=== PATIENT | female | born 1960 | race Caucasian/White ===

== ENCOUNTER 2019-06-04 19:27 | Inpatient (IN) ==
[2019-06-04] MEDS ORDERED: ASPIRIN PO ONE (19:45)
[2019-06-04] MEDS ORDERED: NITROGLYCERIN TOP ONE (19:46)
[2019-06-04] MEDS ORDERED: MORPHINE IV ONE (19:46)
[2019-06-04] MEDS ORDERED: ZOFRAN IV ONE (19:46)
--- NOTE | 2019-06-04 20:17 | Diag Imaging Result Doc PS360 ---
EXAM: CHEST-2 VIEWS 06/04/2019 HISTORY: CP TECHNIQUE: AP and lateral chest COMMENT: The inspiration is less optimal than on 06/12/2018. Considering this there has been no significant change. IMPRESSION: No acute disease. Electronically signed by Adithya Burdick 06/04/2019 8:15 PM
[2019-06-04 20:23] LABS: BASO# 0.04 X1000 (0.0-0.2); BASO% 0.7 % (0.0-0.8); EOS# 0.09 X1000 (0.0-0.7); EOS% 1.6 % (0.0-10.0); HEMATOCRIT 35.9 % (37.0-47.0); HEMOGLOBIN 11.3 g/dL (12.0-16.0); INR 1.01; LYMPH# 1.58 X1000 (1.2-3.4); LYMPH% 27.3 % (20.5-51.1); MCHC 31.5 g/dL (33-37); MCV 92.3 FL (81-99); MONO# 0.28 X1000 (0.11-0.59); MONO% 4.8 % (1.7-9.3); MPV 11.3 FL (7.4-10.4); NEUT# 3.79 X1000 (1.4-6.5); NEUT% 65.6 % (42.2-75.2); PLT 210 X1000 (130-400); PROTIME 13.4 Seconds (11.0-16.0); RBC 3.89 XMIL (4.2-5.4); RDW 13.3 % (11.5-14.5); WBC 5.78 X1000 (4.8-10.8)
[2019-06-04 20:24] LABS: PTT 28.7 Seconds (22.3-41.8)
--- NOTE | 2019-06-04 20:25 | EKG Report ---
Test Performed on : 06/04/2019 7:45:19 PM Test Reason : cp Blood Pressure : / mmHG Vent. Rate : 066 BPM Atrial Rate : 066 BPM P-R Int : 154 ms QRS Dur : 092 ms QT Int : 458 ms P-R-T Axes : 016 -23 -15 degrees QTc Int : 480 ms Normal sinus rhythm. Voltage criteria for left ventricular hypertrophy Prolonged QT Abnormal ECG When compared with ECG of 12-JUN-2018 18:43, Inverted T waves have replaced nonspecific T wave abnormality in Inferior leads T wave inversion now evident in Anterior leads Unconfirmed Result
[2019-06-04 20:34] LABS: ALB/GLOB RATIO 1.4; CALCIUM 9.5 mg/dL (8.8-10.2); CREATININE 1.2 mg/dL (0.5-0.9); POTASSIUM 3.8 mmol/L (3.5-5.1); TOTAL BILIRUBIN 0.28 mg/dL (0.20-1.00); TOTAL PROTEIN 6.9 g/dL (6.3-8.3)
--- NOTE | 2019-06-04 21:19 | PROVIDER DOCUMENTATION ---
This chart was entered by China Nielsen Scribe, acting as scribe for Arun Coello MD. HPI-Chest Pain - General Stated Complaint: cp Time Seen by Provider: 06/04/19 19:34 Source: patient Allergies/Adverse Reactions: Patient Allergies Allergy/AdvReac Type Severity Reaction Status Date / Time No Known Allergies Allergy Verified 06/04/19 20:27 Home Medications: Home Medication List Medication Instructions Recorded Confirmed Last Taken Type Oxycodone HCl/Acetaminophen 1 each PO 4XDAY PRN PRN 05/16/17 06/04/19 Unknown History [Percocet 5-325 mg Tablet] Fluticasone 50 Mcg Nasal [place] 120 spray .SEE ORDER DAILY #1 05/17/18 06/04/19 Unknown Rx [Flonase] bottle Loratadine [Claritin] 10 mg PO DAILY #90 tablet 05/17/18 06/04/19 Unknown Rx Montelukast [Singulair] 10 mg PO QHS #90 tablet 05/17/18 06/04/19 Unknown Rx Nitroglycerin 0.4 mg SL ORDERED #20 tab.subl 06/12/18 06/04/19 Unknown Rx Aspirin [Aspir-Low] 81 mg PO BID 06/04/19 06/04/19 Unknown History Calcipotriene/Betamethasone 1 applicatn TOP DAILY 06/04/19 06/04/19 Unknown History [Calcipotriene-Betameth Dp Oint] Fluticasone Propionate 1 spray INTRANASAL DAILY 06/04/19 06/04/19 Unknown History Meloxicam 15 mg PO DAILY 06/04/19 06/04/19 Unknown History Pregabalin [Lyrica] 100 mg PO DAILY 06/04/19 06/04/19 Unknown History Ticagrelor [Brilinta] 60 mg PO BID 06/04/19 06/04/19 Unknown History - History of Present Illness-CP Nature of Presenting Problem: pt is a 58 yr old female presenting via EMS with 3 day complaint of inte rmittent, worsening chest pain, pt admits pressure 10/10 prior to calling EMS, pt reports improvement with 1 nitro, pain 3/10 upon arrival. pt admits pressure, states it feels like a 100lb weight sitting on her chest. pt denies ay shortness of breath, no nausea/vomiting, admits radiation to bilateral shoulders. Location: reports: substernal Chest Pain Radiation: reports: shoulders (bilateral) Quality of Pain: reports: pressure Severity in ED: moderate Onset/Duration: 3 days ago Timing: intermittent, changing over time, getting worse Context/Activities at Onset: reports: light activity Modifying Factors: improves with: exercise (worsens/induces pain), lying down (no improvement), other medication (nitro x 1 with improvement) Associated Symptoms: reports: diaphoresis. denies: fever/chills, nausea, shortness of breath, syncope Nitro Today/Relief: 0.4 mg x 1, provided at home, mild relief Aspirin Treatment Today: provided at home Prior Chest Pain/Cardiac Workup: reports: other (stents x 3 approx 1 yr ago, followed by Dr Linn) Similar Symptoms Previously?: Yes Recently Seen Here or By Another Healthcare Provider: No Review of Systems - Adult - REVIEW OF SYSTEMS - ADULT Constitutional: denies: fever, fatique Eyes: denies: blurred vision, double vision Ears, Nose, Mouth & Throat: reports: no symptoms reported Cardiovascular: reports: chest pain. denies: palpitations, syncope Respiratory: reports: chronic cough, cough. denies: dyspnea on exertion, shortness of breath, wheezing Gastrointestinal: denies: abdominal pain, diarrhea, nausea, vomiting Genitourinary: reports: no symptoms reported Musculoskeletal: denies: back pain, joint pain, neck pain Integumentary: reports: no symptoms reported Neurological: denies: dizziness/vertigo, headache/migraines, syncope Psychiatric: reports: no symptoms reported Endocrine: reports: no symptoms reported Hematologic/Lymphatic: reports: no symptoms reported Allergic/Immunologic: reports: no symptoms reported All Other Systems: Reviewed and Negative Past History - Adult - PAST MEDICAL HISTORY-ADULT Review of Records: reports: Old Records Reviewed, Nursing Assessment Review, Medications Reviewed, Social history reviewed & non-contributory. Major Childhood Illnesses: reports: denies history Cardiovascular: reports: HTN, hyperlipidemia Respiratory: reports: denies history Gastrointestinal: reports: GERD, other (Coronel's esophagitis) Obstetrical/Gynecological: reports: denies history Genitourinary: reports: denies history Musculoskeletal: reports: chronic pain, other (scoliosis) Neurological: reports: denies history Endocrine/Immune: reports: denies history Other Conditions: reports: denies history - PRIOR SURGERIES/PROCEDURES Surgical/Procedure History: reports: cholecystectomy, hysterectomy, other (thyroidectomy) - IMMUNIZATION STATUS Childhood Immunizations: See Nurse Assessment Flu Vaccine: See Nurse Assessment - FAMILY HISTORY Family History: reviewed, not pertinent - SOCIAL HISTORY Smoking: other (vape) Living Situation: alone Physical Exam-General - PHYSICAL EXAM-ADULT Initial Vital Signs Reviewed: Yes - CONSTITUTIONAL General Appearance: appears well, alert, no apparent distress - EYES Eyes: PERRL/EOMI - HEAD, EARS, NOSE, MOUTH & THROAT HENMT: normocephalic/atraumatic, moist mucous membranes, normal ENT inspection - NECK Neck: non-tender, full range of motion, supple, normal inspection - RESPIRATORY Respiratory: chest non-tender, lungs clear, normal breath sounds, no respiratory distress, no accessory muscle use - CARDIOVASCULAR Cardiovascular: normal peripheral pulses, regular rate, rhythm, no edema - GASTROINTESTINAL (ABDOMEN) Abdominal Exam: normal bowel sounds, non tender, soft - LYMPHATIC Lymphatic: no adenopathy - MUSCULOSKELETAL Back Exam: normal inspection Extremity: normal range of motion, non-tender, normal gait, normal inspection - SKIN Integumentary: normal color, normal turgor, warm/dry - NEUROLOGIC Neurologic: grossly normal, no motor/sensory deficits - PSYCHIATRIC Psych/Mental Status: normal mood/affect, normal thought content, normal thought process - HEART Score HEART Score: History: Highly Suspicious HEART Score: ECG: Non-Specific Repolarization Disturbance/LBBB/PM HEART Score: Age: 45-65 Years HEART Score: Risk Factors for Atherosclerotic Disease: > or = 3 Risk Factors or History of Atherosclerotic Disease HEART Score: Troponin: < or = Normal Limit Total HEART Score:: 6 Progress - PLAN OF CARE/RESULTS Progress/Plan/Lab Results: Vital Signs - 8 hr 06/04/19 19:30 Temperature 97.8 F Pulse Rate 65 Respiratory Rate 18 Blood Pressure 102/66 O2 Sat by Pulse Oximetry 98 Laboratory Results - last 24 hr 06/04/19 06/04/19 06/04/19 20:05 20:05 20:05 WBC 5.78 RBC 3.89 L Hgb 11.3 L Hct 35.9 L MCV 92.3 MCH 29.0 MCHC 31.5 L RDW Std Deviation 13.3 Plt Count 210 MPV 11.3 H Immature Gran % (Auto) 0.0 Neut % (Auto) 65.6 Lymph % (Auto) 27.3 Humphreys % (Auto) 4.8 Eos % (Auto) 1.6 Baso % (Auto) 0.7 Immature Gran # (Auto) 0.00 Neut # (Auto) 3.79 Lymph # (Auto) 1.58 Humphreys # (Auto) 0.28 Eos # (Auto) 0.09 Baso # (Auto) 0.04 PT INR PTT (Actin FS) Sodium 140 Potassium 3.8 Chloride 104 Carbon Dioxide 24 L Anion Gap 12 BUN 17 Creatinine 1.2 H Estimated GFR/1.73 m2 46 BUN/Creatinine Ratio 14 Glucose 98 Calculated Osmolality 281 Calcium 9.5 Total Bilirubin 0.28 AST 10 ALT 5 L Alkaline Phosphatase 56 Creatine Kinase 73 Troponin T High Sens Xcl-S-Lhkbmanurrf Pept 119 Total Protein 6.9 Albumin 4.0 Globulin 2.9 Albumin/Globulin Ratio 1.4 06/04/19 06/04/19 20:05 20:05 WBC RBC Hgb Hct MCV MCH MCHC RDW Std Deviation Plt Count MPV Immature Gran % (Auto) Neut % (Auto) Lymph % (Auto) Humphreys % (Auto) Eos % (Auto) Baso % (Auto) Immature Gran # (Auto) Neut # (Auto) Lymph # (Auto) [place] # (Auto) Eos # (Auto) Baso # (Auto) PT 13.4 INR 1.01 PTT (Actin FS) 28.7 Sodium Potassium Chloride Carbon Dioxide Anion Gap BUN Creatinine Estimated GFR/1.73 m2 BUN/Creatinine Ratio Glucose Calculated Osmolality Calcium Total Bilirubin AST ALT Alkaline Phosphatase Creatine Kinase Troponin T High Sens < 6 Crw-D-Izxdksskvei Pept Total Protein Albumin Globulin Albumin/Globulin Ratio Orders Category Date Time Status Cardiac Monitoring DIRECTED Care 06/04/19 19:45 Active Nursing- Obtain EKG once Care 06/04/19 22:00 Active Oxygen Therapy- ED Nursing DIRECTED Care 06/04/19 19:45 Active Saline Loc NOW Care 06/04/19 19:45 Active CHEST-2 VIEWS [RAD] Stat Exams 06/04/19 19:45 Completed CBC WITH ELECTRONIC DIFF [HEME] Stat Lab 06/04/19 20:05 Completed CK PROFILE [SP CHEM] Stat Lab 06/04/19 20:05 Completed COMPREHENSIVE METABOLIC PANEL [CHEM] Stat Lab 06/04/19 20:05 Completed PRO B-NATRIURETIC PEPTIDE Stat Lab 06/04/19 20:05 Completed PROTIME WITH INR [COAG] Stat Lab 06/04/19 20:05 Completed PTT [COAG] Stat Lab 06/04/19 20:05 Completed TROPONIN T HIGH SENSITIVITY Stat Lab 06/04/19 20:05 Completed TROPONIN T HIGH SENSITIVITY Stat Lab 06/04/19 22:00 Uncollected Aspirin Med 06/04/19 19:45 Discontinued 325 mg PO NOW ONE Morphine Med 06/04/19 19:46 Discontinued 2 mg IV NOW ONE Nitroglycerin Med 06/04/19 19:46 Discontinued 0.5 inch TOP NOW ONE Ondansetron [Zofran] Med 06/04/19 19:46 Discontinued 4 mg IV NOW ONE CP/SOB/Palp >45 yrs of Age Stat Oth 06/04/19 19:45 Ordered EKG [EKG] Stat Ther 06/04/19 19:40 Draft EKG [EKG] Stat Ther 06/04/19 22:00 Ordered Result Diagrams: 06/04/19 20:05 06/04/19 20:05 - REASSESSMENT Reassessment #1 Time Reassessed: 21:13 Status: improving (Pain free at this time. Will admit for CP, r/o UT) - EKG 1 Time of EKG reading by physician:: 19:52 EKG Read and Signed by:: Arun Coello EKG Interpretation (*Must complete 3 of following elements*): Abnormal (lad) Rate: 66 Rhythm: nsr [place]: normal QRS: LVH AL Interval: prolonged ST Wave: non-specific ST changes Prior EKG Comparison: changes noted (t wave changes from 06/12/18) - CARDIAC RHYTHM INTERPRETATION EMS EKG Rhythm Strip Interpretation: NSR, rate 80 - XRAY 1 XRAY Study: Chest ( EXAM: CHEST-2 VIEWS 06/04/2019 HISTORY: CP TECHNIQUE: AP and lateral chest COMMENT: The inspiration is less optimal than on 06/12/2018. Considering this there has been no significant change. IMPRESSION: No acute disease. Electronically signed by Adithya Burdick 06/04/2019 8:15 PM 06/04/192014 Interpreting Physician: Adithya Burdick MD Dictated Date/Time: 06/04/192013 cc: Arun Coello MD; Seb Harris) - CONSULTS/PCP/HOSPITALIST Notification #1 *Consult/PCP/Hospitalist*: Clay paged at [phone] Time Discussed: 21:18 Consult Disposition: Will see in ED, Admit Departure - Departure Date of Disposition Decision: 06/04/19 Time of Disposition Decision: 21:14 DIAGNOSIS: Substernal precordial chest pain, Unstable angina, Nicotine vapor product user Disposition: ADMITTED INPATIENT 09 Certified Medical Emergency: Emergent Condition: Stable Referrals and Follow-Ups: Seb Harris CRNP [Primary Care Provider] - - Critical Care Note This patient required my direct & personal management of CC.: No Attestation - Physician/ ELISEO Attestation Patient care was provided by Advanced Practice Provider:: No The physician spent face to face time with patient:: Yes Advanced Practice Provider documentation review:: Supervising physician onsite and consulted in the evaluation and care of this patient. The physician did have a face to face encounter with the patient. This chart was documented by the indicated scribe, (China Nielsen, Steven) and accurately reflects the services I performed and decisions made by me, Arun Coello MD, as attested by the provider's signature.
--- NOTE | 2019-06-04 21:46 | ED EKG INTERP ---
EKG Interpretation - EKG Time of EKG reading by physician:: 21:45 EKG Read and Signed by:: Arun Coello EKG Interpretation (*Must complete 3 of following elements*): Abnormal Rate: 63 Rhythm: nsr [place]: left QRS: other (early transition) OK Interval: normal ST Wave: non-specific ST changes Prior EKG Comparison: unchanged from prior Attestation - Physician/ ELISEO Attestation Patient care was provided by Advanced Practice Provider:: No The physician spent face to face time with patient:: Yes Advanced Practice Provider documentation review:: Supervising physician onsite and consulted in the evaluation and care of this patient. The physician did have a face to face encounter with the patient.
--- NOTE | 2019-06-04 23:34 | EKG Report ---
Test Performed on : 06/04/2019 9:33:12 PM Test Reason : this is a two hour repeat Blood Pressure : / mmHG Vent. Rate : 063 BPM Atrial Rate : 063 BPM P-R Int : 160 ms QRS Dur : 094 ms QT Int : 466 ms P-R-T Axes : 014 -19 -29 degrees QTc Int : 476 ms Normal sinus rhythm. Voltage criteria for left ventricular hypertrophy ST & T wave abnormality, consider anterior ischemia Prolonged QT Abnormal ECG When compared with ECG of 04-JUN-2019 19:45, (Unconfirmed) No significant change was found Unconfirmed Result
[2019-06-05 05:23] LABS: MAGNESIUM 2.2 mg/dL (1.5-2.7); POTASSIUM 3.9 mmol/L (3.5-5.1)
[2019-06-05] MEDS ORDERED: TYLENOL PO PRN (07:15)
[2019-06-05] MEDS ORDERED: ZOFRAN IV PRN (07:15)
--- NOTE | 2019-06-05 07:17 | EKG Report ---
Test Performed on : 06/05/2019 07:10:59 AM Test Reason : Bradycardia Blood Pressure : / mmHG Vent. Rate : 054 BPM Atrial Rate : 054 BPM P-R Int : 166 ms QRS Dur : 092 ms QT Int : 504 ms P-R-T Axes : 033 -12 -14 degrees QTc Int : 477 ms Sinus bradycardia. Moderate voltage criteria for LVH, may be normal variant Borderline ECG When compared with ECG of 04-JUN-2019 21:33, (Unconfirmed) T wave inversion no longer evident in Anterior leads Confirmed by Robert GENAO, Crescencio Muhammad ([id number]) on 06/06/2019 12:22:42 PM
[2019-06-05] MEDS ORDERED: PERCOCET-5 PO PRN (07:23)
[2019-06-05] MEDS: LYRICA PO SCH ×2 (08:58→21:01)
[2019-06-05] MEDS: ASPIRIN EC PO SCH ×2 (08:58→21:01)
[2019-06-05] MEDS: NON-FORMULARY MED PO SCH ×2 (08:58→21:01)
[2019-06-05] MEDS ORDERED: PATIENT'S OWN MED TOP SCH (09:00)
[2019-06-05] MEDS ORDERED: CLARITIN PO SCH (09:00)
[2019-06-05] MEDS ORDERED: NS 1,000 ML ONE (10:51)
[2019-06-05] MEDS ORDERED: ANESTHESIA PB SET 88 IN 5742 ONE (10:51)
[2019-06-05] MEDS ORDERED: MORPHINE ONE (10:51)
[2019-06-05] MEDS ORDERED: VERSED ONE (10:51)
--- NOTE | 2019-06-05 11:20 | CONSULTATION ---
DATE OF CONSULTATION: 06/05/2019 IMPRESSION: 1. Unstable angina. 2. Atherosclerotic coronary disease. The patient is status post coronary angioplasty/stenting of left anterior descending coronary artery and first obtuse marginal less than a year ago after presenting with very similar symptoms. Interestingly, myocardial perfusion imaging was negative prior to discovery of her significant coronary artery stenoses. 3. Hypertension. 4. Chronic obstructive pulmonary disease. 5. Gastroesophageal reflux disease. 6. Hyperlipidemia. 7. Nicotine addiction. Patient currently uses a vape device. 8. Hypothyroidism. RECOMMENDATIONS: Favor pursuit of left heart catheterization and selective coronary angiography given clinical presentation, known coronary artery disease, and previous cardiac history. The rationale for this approach along with potential hazards have been reviewed with the patient, and she wished to proceed. HISTORY: This 58-year-old, white female with a past history of atherosclerotic coronary disease as outlined above was admitted with recurrent chest discomfort similar to last year when she ultimately had coronary angioplasty/stenting performed. She relates, for the past several days, she has been experiencing substernal chest pressure at rest and with minimal activity. Discomfort is also provoked by emotional stress. Episodes initially might last 5 to 15 minutes but yesterday she had a more protracted episode, prompting her to come in for evaluation. She has had a few brief instances of chest discomfort since admission. She relates that symptoms are similar to what she had last year, although she does have a history gastroesophageal reflux. It is noteworthy that last year, she had a negative stress myocardial perfusion study performed but ultimately, because of persistent symptoms, she was referred for cardiac catheterization/coronary angiography at which time her significant coronary stenoses were discovered. She continues on aspirin and Brilinta, among other medications. She no longer smokes cigarettes. She does use a vape device. PAST MEDICAL HISTORY: 1. Atherosclerotic coronary disease as outlined above. 2. Hypertension. 3. Hyperlipidemia. 4. Chronic obstructive pulmonary disease. 5. Gastroesophageal reflux disease. 6. Hypothyroidism. 7. Chronic pain disorder. ALLERGIES: She has no known drug allergies. PAST SURGICAL HISTORY: Includes hemorrhoidectomy, hysterectomy, thyroid surgery, and cholecystectomy. HOME MEDICATIONS PRIOR TO ADMISSION: As listed. SOCIAL HISTORY: She is . 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 She continues the use of a vape device to continue her nicotine. She does not smoke cigarettes anymore. She does not use alcohol. FAMILY HISTORY: Noncontributory beyond the history present illness. REVIEW OF SYSTEMS: Pulmonary: Noncontributory beyond the history of present illness. Gastrointestinal: Noncontributory beyond the history of present illness. Constitutional: Noncontributory beyond the history of present illness. Remainder of the review of systems negative/noncontributory beyond the history present illness with 14 total systems reviewed. PHYSICAL EXAMINATION: General: This is a pleasant, middle-aged, white female in no distress, on supplemental oxygen. Vital Signs: Blood pressure 122/63, heart rate 54. HEENT Examination: Extraocular movements appear intact. Mucous membranes are moist. Neck: Supple, without jugular venous distention. There are no carotid bruits. Chest: Clear to auscultation bilaterally. Cardiac Examination: Reveals a regular rate and rhythm without appreciable murmur or gallop. Abdomen: Soft. Bowel sounds are normal. Extremities: Without edema. Neurologic: Examination reveals her to be alert and fully oriented. Speech is fluent. She moves all 4 extremities equally well. Skin: Warm and dry. Psychiatric: Examination reveals mood to be appropriate. PERTINENT DATA: Twelve-lead electrocardiogram demonstrates sinus tachycardia and minimal voltage criteria for left ventricular hypertrophy. LABORATORY DATA: Includes a white blood cell count of 5.7, hematocrit 35.9, hemoglobin 11.3, platelet count 210,000. Prothrombin time 13.4, INR 1.01, PTT 28.7. Sodium 142, potassium 3.9, chloride 105, carbon dioxide 28, BUN 17, creatinine 1.0, glucose 88. Initial high sensitivity troponin less than 6, followup high sensitivity troponin less than 6 and less than 6. cc: Luis Graham MD
--- NOTE | 2019-06-05 11:58 | EKG Report ---
Test Performed on : 06/05/2019 11:52:58 AM Test Reason : s/p heart cath Blood Pressure : / mmHG Vent. Rate : 055 BPM Atrial Rate : 055 BPM P-R Int : 122 ms QRS Dur : 096 ms QT Int : 476 ms P-R-T Axes : 012 -21 -16 degrees QTc Int : 455 ms Sinus bradycardia. Moderate voltage criteria for LVH, may be normal variant Borderline ECG When compared with ECG of 05-JUN-2019 07:10, (Unconfirmed) No significant change was found Confirmed by Robert GENAO, Crescencio Muhammad ([id number]) on 06/06/2019 12:23:18 PM
[2019-06-05] MEDS ORDERED: NS 1,000 ML IV SCH (12:00)
[2019-06-05] MEDS: HUMULIN R SUBQ SCH ×3 (12:56→20:48)
--- NOTE | 2019-06-05 16:57 | PROGRESS NOTE ---
DATE: 06/05/2019 INTERVAL HISTORY: The patient still with some mild chest pressure, but much improved from previous. Similar to patient's previous presentation with negative troponins. Cardiology planning on cardiac cath today. No new complaints. No acute events overnight. REVIEW OF SYSTEMS: Twelve point review except as per interval history. LABORATORY DATA: Sodium 142, potassium 3.9, BUN 17, creatinine 1.0, glucose 88. Troponin negative x3. VITAL SIGNS: T-max 97.8 degrees, pulse 56, respirations 14, blood pressure 143/76, O2 saturation 99% on room air. PHYSICAL EXAMINATION: General: No acute distress. Vitals: As above. HEENT: Normocephalic, atraumatic. Moist mucous membranes. No cervical adenopathy. Cardiovascular: Regular rate and rhythm. No murmurs noted. Pulmonary: Clear to auscultation bilaterally. No wheezing, rales, or rhonchi. Abdomen: Soft, nontender, nondistended. Bowel sounds positive. Extremities: Peripheral pulses intact. No clubbing, cyanosis, or edema. Neurologic: Cranial nerves grossly intact. No focal deficits. Psychiatric: Normal mood and affect. Awake, alert, oriented x3. ASSESSMENT AND PLAN: 1. Chest pain. Negative troponins x3. Discussed with Cardiology on a previous admission, patient had negative workup, but then had persistent chest pain, so a catheterization was performed. The patient end up getting 3 stents. They have some concern for again a highly atypical presentation of unstable angina. They plan on taking patient to the [facility] today. Based on results, we will go from there. 2. Coronary artery disease continue aspirin and Brilinta. 3. Seasonal allergies. Continue Singulair and Claritin.
[2019-06-05] MEDS ORDERED: SINGULAIR PO SCH (21:00)
[2019-06-06 04:45] VITALS: BP 103/65
[2019-06-06] MEDS: HUMULIN R SUBQ SCH (06:23)
[2019-06-06 07:22] LABS: HEMOGLOBIN A1C 5.5 % (4.8-6.0)
[2019-06-06 07:35] LABS: AGAP 7; BUN 14 mg/dL (8-22); CALCIUM 9.3 mg/dL (8.8-10.2); CHLORIDE 104 mmol/L (98-107); COSMO 280; CREATININE 0.9 mg/dL (0.5-0.9); ESTIMATED GFR > 60; GLUCOSE 93 mg/dL (70-104); MAGNESIUM 2.1 mg/dL (1.5-2.7); POTASSIUM 4.2 mmol/L (3.5-5.1); SODIUM 140 mmol/L (136-145); TCO2 29 mmol/L (25-35)
--- NOTE | 2019-06-06 09:12 | HISTORY AND PHYSICAL ---
PRIMARY CARE PROVIDER: RAJIV Joyce. PATIENT'S EDUCATIONAL CONSULTANT: Dr. Luis Graham. CHIEF COMPLAINT: Chest pain. HISTORY OF PRESENT ILLNESS: Ms Potts is a 58-year-old female who has been complaining of a 3-day history of intermittent chest pain. She states the chest pain is in the center of her chest, though does radiate to her left neck and left arm. She reports that the pain is a heavy pressure-type pain and at times almost felt like she had associated indigestion with it like she "needed to burp". She also reported associated symptoms of shortness of breath, diaphoresis, feeling dizzy and lightheaded. She states that after arrival to the ER, with administration of nitroglycerin topical paste, IV morphine and aspirin, that her chest pain has improved. She does not had any chest pain at present. The patient denies any headache, abdominal pain, nausea, vomiting, or diarrhea. She denies any hematemesis, hematochezia or melena. She denies any dysuria or urinary frequency. She denies any numbness, tingling, or swelling in the extremities. The patient does have degenerative bone disease, scoliosis and does have some chronic pain associated with this. Other than this, she does not report any new pain in extremities. The patient did state that approximately a few weeks to a month or 2 ago that she did have a knot noted her posterior left knee but behind her knee. She stated that this came up though has since gone away and has not returned. She is not reporting any pain, tenderness, swelling. She does not have any warmth or tenderness noted to this extremity. Upon palpation of the area where she started this knot was, I did not note any nodules or wounds. EKG performed in the ER did show normal sinus rhythm with a prolonged QT at a rate of 480. Though in looking back in comparison with the most recent EKG prior to this in May 2018, it does look like she may have some T-wave inversion that was not previously present and is now noted aVF, V3 and V4. Since arriving to the ER, her troponin and CKs have been negative. Chest x-ray showed no acute abnormalities. The patient does have a history of a [*]myocardial infarction with 3 stents that have been placed. Though she could not remember the last date, she states she states this has been just around 1 year ago. She does still currently take Brilinta 60 mg twice a day as well. She will be placed inpatient for admission and further evaluation of her chest pain. She will be placed in the PVC unit. REVIEW OF SYSTEMS: A 14 point review of systems was conducted with the patient and all were negative except for pertinent positives mentioned in above HPI. PAST MEDICAL HISTORY: 1. Coronary artery disease status post coronary stenting x3. 2. Hypertension. 3. Hyperlipidemia. 4. COPD. 5. GERD. 6. Hypothyroidism. 7. Chronic pain. 8. Coronel's esophagus. 9. Scoliosis. 10. Eczema. 11. Degenerative bone disease. 12. Osteoporosis. 13. Depression. 14. Anxiety. PAST SURGICAL HISTORY: 1. Hemorrhoidectomy. 2. Hysterectomy. 3. Thyroid surgery. 4. Coronary stent placement x3. SOCIAL HISTORY: The patient does report that she is a former smoker. She did smoke for approximately 40 years up to 2 packs per day. She did quit smoking 6 years ago. She does report that for 6 years since then, she has been vaping, though she denies any alcohol or illicit drug use. FAMILY HISTORY: Positive for hypertension in her mother. Her father had a history of heart disease, COPD and diabetes mellitus. ALLERGIES: Patient has no known allergies. HOME MEDICATIONS: 1. Aspirin 81 mg p.o. b.i.d. 2. Baclofen 10 mg p.o. daily p.r.n. 3. Calcipotriene and betamethasone topical ointment 1 application topically daily. 4. Coreg 6.25 mg p.o. b.i.d. 5. Claritin 10 mg p.o. daily. 6. Singulair 10 mg p.o. at bedtime. 7. Nitroglycerin 0.4 mg sublingual as instructed as needed for chest pain. 8. Percocet 5 mg p.o. 1 tablet b.i.d. p.r.n. as needed for pain. 9. Lyrica 100 mg p.o. b.i.d. 10. Brilinta 60 mg p.o. b.i.d. DIAGNOSTIC DATA/LABORATORY RESULTS: White blood cell count is 5780, hemoglobin 11.3, hematocrit 35.9, platelet count is 210,000. PT 13.4, INR 1.01, PTT is 28.7. Sodium 140, potassium 3.8, chloride 104, serum bicarbonate is 24, BUN 17, creatinine 1.2 with a GFR 46, glucose 98, calcium 9.5. Liver function tests within normal limits. CK 73. Troponin T high sensitivity is less than 6. ProBNP is 119. Chest x-ray showed no acute abnormalities. EKG showed normal sinus rhythm with prolonged QT. There were some T wave abnormalities. When compared back to most recent EKG prior to this in May 2018, there does appear to be some T- wave inversion that does not look like it was present previously, though the comparison EKG does have some artifact noted. It does look like this is now present in aVF, V3 and V4. PHYSICAL EXAMINATION: VITAL SIGNS: Temperature 97.8 degrees, heart rate 68, respirations 16, blood pressure is 102/62 with a MAP of 73, oxygen saturation is 97% on room air. GENERAL: Ms. Potts is a very pleasant 58-year-old female. She was resting on the ER stretcher. She was in no acute distress. She was awake, alert, and able answer questions appropriately. HEENT: Head is atraumatic, normocephalic. Pupils are equal, round, reactive to light, were 3 mm bilaterally and brisk. Oral mucosa is moist. Oropharynx clear. NECK: Supple. Trachea midline. CARDIOVASCULAR: Patient has S1, S2 present. No murmurs, gallops, rubs appreciated with a regular rate and rhythm. PULMONARY: Patient has symmetrical chest expansion bilaterally. Lung sounds are clear to auscultation in bilateral full levin. ABDOMEN: Soft, nontender, nondistended. Bowel sounds are present in all 4 quadrants, were normoactive. EXTREMITIES: No cyanosis or edema noted. Pulse, motor, and sensory were intact in all extremities. Radial pulses and pedal pulses are 2+ bilaterally. The patient did report, as mentioned in the above HPI, a nodule that was behind her left knee approximately a few weeks to few months ago though upon palpation, this was not noted at this time. The patient did not report any tenderness in this area or any tenderness in her deep venous system of her left lower extremity. There is no warmth, erythema or swelling noted. INTEGUMENTARY: The patient's skin is pink, warm, and dry. NEUROLOGICAL: Patient is alert and oriented to person, place, time, and situation. There are no focal neurological deficits noted. ASSESSMENT AND PLAN: 1. Chest pain. For further evaluation of this, we will continue with a series of cardiac enzymes. We will repeat an EKG later on this morning. We will also perform an echocardiogram. We will continue the patient's aspirin and Brilinta as previously prescribed. We will also continue Coreg as well. We have placed a consult with Cardiology. Will await their evaluation and further recommendations for management. She has been placed in the PVC unit for close monitoring. 2. Questionable history of diabetes mellitus. According to the patient's medication history, she does take metformin extended release 500 mg p.o. daily. Her glucose levels have not been elevated here except for one reading of 113. We will place a sliding scale insulin per low- dose protocol with pattern fingerstick blood sugars. We will place an order for hemoglobin A1c. We will continue to follow. 3. Chronic pain. We will continue the patient's Percocet 5 mg and her Lyrica. Further orders and recommendations pending hospital course, diagnostic studies, and physician evaluation. Dictated by RAJIV Terrell for Timothy Williamson MD cc: Timothy Williamson MD
--- NOTE | 2019-06-06 16:40 | ECHO REPORT ---
ORDER DATE: 06/05/2019 INTERPRETING PHYSICIAN: Dr. Tim Bernstein. ECHOCARDIOGRAPHIC MEASUREMENTS: 1. Interventricular septum: 1.1 cm. 2. Left ventricular posterior wall: 1.0 cm. 3. Diastolic diameter: 4.3 cm. 4. Left ventricular systolic diameter: 3.4 cm. 5. Left atrium: 4 cm. 6. Aorta: 3.2 cm. SUMMARY OF THE 2-DIMENSIONAL IMAGIN. Pulmonic valve was normal. 2. Aortic valve leaflets were trileaflet. 3. Mitral valve was normal. 4. Tricuspid valve was normal. 5. There is mild mitral regurgitation. 6. Mild tricuspid regurgitation. 7. Peak velocity across the tricuspid valve was 2.6 meters per second. 8. Pulmonary artery systolic pressure of 38 mmHg. 9. Peak velocity across the aortic valve less than 2 meters per second. 10. There is no aortic stenosis or regurgitation. 11. There is mild mitral regurgitation. 12. Normal left ventricular cavity size. 13. Estimated ejection fraction of 65%. 14. There is no pericardial effusion or obvious intracardiac mass or thrombus seen. cc: Tim Bernstein MD
--- NOTE | 2019-06-07 08:57 | DISCHARGE SUMMARY ---
ADMISSION DATE: 06/05/2019 DISCHARGE DATE: 06/06/2019 PRIMARY CARE PHYSICIAN: Dr. Harris. CONSULTATIONS: Cardiology. ADMISSION DIAGNOSES: 1. Chest pain. 2. Questionable history of diabetes. 3. Chronic pain. DISCHARGE DIAGNOSES: 1. Chest pain. 2. Questionable history of diabetes. 3. Chronic pain. SUMMARY OF FINDINGS: This is a 58-year-old female who presented with complaints of a 3-day history of intermittent pain in the center of her chest radiating to the left neck and left arm. States the pain was a heavy pressure type pain and at times felt that she had associated indigestion that she needed to burp. She was admitted, noted to have 3 sets of troponin T high sensitivities that were negative and after cardiology saw her and due to her history they favored a pursuit of a left heart catheterization and selective coronary angiography given her clinical presentation and known coronary artery disease and previous cardiac history, so she is being transferred to [facility] for further cardiac intervention at this time. FOLLOWUP: Will be per their discharge instructions. DISCHARGE MEDICATIONS: Discharge medications will be per their discharge instructions as well. TIME SPENT: This a 35 minute discharge. Dictated by RAJIV Segundo for Jose J Caicedo MD cc: RAJIV Segundo CRNP
--- NOTE | 2019-06-07 12:06 | CARDIAC CATH REPORT ---
PROCEDURE NAME: - PROCEDURE PERFORMED: Left heart catheterization, selective coronary angiography and left ventriculography. Entry site right femoral artery. CATHETERS USED: A 5-[place] Lucian JL4, 3DRC, and angled pigtail. TECHNIQUE: After intravenous sedation with morphine and Versed, local anesthesia with lidocaine was applied over right femoral artery. Arterial access was established with placement of a 5- [place] sheath in the right femoral artery using modified Seldinger technique. Selective coronary angiography was performed followed by left heart catheterization and left ventriculography. Upon completion of procedure, arterial sheath was removed from right femoral artery and hemostasis facilitated with manual pressure. The patient tolerated the procedure without apparent complications. FINDINGS: Hemodynamics: Aortic pressure 111/55 with a mean of 79. Left ventricular pressure 122 over EDP of 13. COMMENTS ON HEMODYNAMICS: There is no significant gradient across aortic valve demonstrated on pullback for left ventricle. ANGIOGRAPHY: 1. Left ventriculogram. The left ventricle was of normal size without regional wall abnormality evident on CHAO projection. Estimated left ejection fraction appears to be at least 65%. There is no significant mitral regurgitation. 2. Left main coronary. Left main coronary is free of significant coronary stenosis. 3. Left anterior descending coronary. The left anterior descending coronary artery gives rise to a medium-sized diagonal branch after the proximal one-third of the vessel, and at the same time gives rise to a large septal lithographer helper. Just beyond this, the left anterior descending coronary demonstrates mild tortuosity, and a stented region which is widely patent. Just proximal to the stent, there appears to be a mild focal narrowing. 4. Left circumflex coronary the left circumflex coronary demonstrates a mild to moderate (40 to 50%) focal narrowing very proximally. First obtuse marginal arises from mid left circumflex coronary, and demonstrates a stented region proximally. The very proximal end of the stent in the first obtuse marginal, and just proximal to the stent demonstrates severe (90%) focal stenosis. The immediate continuation of left circumflex coronary also demonstrates a severe (90%) focal stenosis. This is essentially a bifurcational lesion with restenosis of the first obtuse marginal. 5. Right coronary. The dominant right coronary demonstrates mild irregularities but no significant coronary stenosis. CONCLUSIONS: 1. Normal left ventricular systolic function without wall motion abnormality evident on CHAO projection. 2. Right dominant coronary anatomy as described with patent stent in mid left anterior descending coronary with mild focal narrowing just proximal to the stent left anterior descending coronary in a somewhat torturous region, and severe bifurcational stenosis involving the 1st obtuse marginal, and continuation of left circumflex coronary artery as described. cc: Luis Graham MD
== END 2019-06-06 07:45 | disposition short-term general hospital (02) | DRG 287 ==
LOC: SUPCPDRO → ED 19:27 → SUATTDRO 06-05 04:36 → 2N 06-05 04:36
PROVIDERS: ATTEND Internal Medicine